=== PATIENT | female | born 1950 | race Asian ===

== ENCOUNTER 2019-04-15 09:07 | Day surgery (SDC) | payer OTHER ==
[~2019-04-15] VITALS: Ht 157.5 cm; Wt 59.3 kg
[2019-04-15 09:57] VITALS: Ht 157.5 cm; Wt 59.3 kg
[2019-04-15] MEDS ORDERED: LIDOCAINE 4% SOLUTION 50 ML BTL ONE (10:30)
[2019-04-15] MEDS ORDERED: VITAMIN E (10:34)
[2019-04-15] MEDS ORDERED: PRAVASTATIN (10:34)
[2019-04-15] MEDS ORDERED: OMEPRAZOLE (10:34)
[2019-04-15] MEDS ORDERED: [UNRECOGNIZED DRUG - CODE] PO (10:34)
[2019-04-15] MEDS ORDERED: BIOTIN (10:34)
[2019-04-15] MEDS ORDERED: MECLIZINE (10:34)
[2019-04-15] MEDS ORDERED: IBUPROFEN (10:34)
[2019-04-15] MEDS ORDERED: VITAMIN C (10:34)
[2019-04-15 10:40] VITALS: BP 150/70; PULSE 73; RESP 26
[2019-04-15] MEDS ORDERED: FENTAnyl 50 MCG/ML VIAL ONE (11:11)
[2019-04-15] MEDS ORDERED: MIDAZOLAM 1 MG/ML 2 ML INJ ONE ×2 (11:11)
[2019-04-15 11:35] VITALS: BP 136/64; PULSE 59; RESP 16
== END 2019-04-15 13:01 | disposition home or self-care (01) ==
LOC: GIL 09:07
PROVIDERS: ATTEND Internal Medicine Gastroenterology
DX: K29.50 Unspecified chronic gastritis without bleeding (principal); K20.9 Esophagitis, unspecified; I10 Essential (primary) hypertension
CPT/HCPCS: 43239; 88305; 88312; J2250; J3010